=== PATIENT | male | born 1985 | race Two or more races ===

== ENCOUNTER 2018-12-30 16:00 | Emergency (ER) | payer OTHER ==
[~2018-12-30] VITALS: Ht 182.9 cm; Wt 122.5 kg
[2018-12-30 17:09] LABS: Basophils # (auto) 0.1 uL; Basophils % (auto) 1.3 % (0.0-2.0); Eosinophils # (auto) 0.4 uL; Eosinophils % (auto) 5.5 % (0.0-7.0); Hematocrit 47.6 % (41.0-53.0); Hemoglobin 16.3 g/dL (13.5-17.5); Lymphocytes # (auto) 2.5 uL; Lymphocytes % (auto) 35.4 % (10.0-50.0); Mean Corpuscular Hemoglobin 31.8 pg (28.0-32.0); Mean Corpuscular Hgb Conc. 34.4 g/dL (32.0-36.0); Mean Corpuscular Volume 92.4 fL (80.0-100.0); Monocytes # (auto) 0.6 uL; Monocytes % (auto) 8.7 % (0.0-12.0); Neutrophils # (auto) 3.5 uL; Neutrophils % (auto) 49.1 % (37.0-80.0); Nucleated Red Blood Cells % 0.1 %; Platelet Count (auto) 189 10^3/uL (140-450); Red Blood Cells 5.15 10^6/uL (4.5-5.90); Red Cell Distribution Width 12.1 % (11.8-14.3); White Blood Cell 7.2 10^3/uL (4.4-10.8)
[2018-12-30 17:26] LABS: Chloride 105 mmol/L (98-107); Potassium 3.7 mmol/L (3.5-5.1); Sodium 137 mmol/L (136-145)
[2018-12-30 17:35] LABS: Albumin 3.9 g/dL (3.4-5.0); Anion Gap 7 (5-15); Aspartate Aminotransferase 26 U/L (15-37); BUN/Creatinine Ratio 14.4; Blood Urea Nitrogen 15 mg/dL (7-18); Calcium 8.5 mg/dL (8.5-10.1); Carbon Dioxide 25 mmol/L (21-32); GFR African American 105 mL/min; GFR Non-African American 86 mL/min; Glucose 88 mg/dL (74-106)
[2018-12-30 17:39] LABS: Alanine Aminotransferase 52 U/L (16-61); Alkaline Phosphatase 64 U/L (45-117); Bilirubin, Total 0.3 mg/dL (0.2-1.0); Total Protein 7.8 g/dL (6.4-8.2)
[2018-12-30 22:42] LABS: INR 0.99 (0.9-1.15); Partial Thromboplastin Time 25.1 sec (23.64-32.05)
[2018-12-30 23:24] VITALS: BP 147/98
== END 2018-12-31 00:22 | disposition home or self-care (01) ==
LOC: ER 16:00
DX: I49.3 Ventricular premature depolarization (principal); R00.2 Palpitations
CPT/HCPCS: 36415; 71046; 80053; 80320; 84484; 85025; 85379; 85610; 85730; 93005

== ENCOUNTER 2019-05-08 22:20 | Emergency (ER) | payer OTHER ==
[~2019-05-08] VITALS: Ht 182.9 cm; Wt 124.7 kg
[2019-05-09 00:32] VITALS: BP 150/93
== END 2019-05-09 02:32 | disposition home or self-care (01) ==
LOC: ER 22:20
DX: L02.415 Cutaneous abscess of right lower limb (principal)
CPT/HCPCS: 76881